=== PATIENT | male | born 1985 | race Two or more races ===

== ENCOUNTER 2021-03-03 10:57 | Emergency (ER) | payer MEDICAID ==
[~2021-03-03] VITALS: Ht 154.9 cm; Wt 93.0 kg
[2021-03-03 11:14] VITALS: BP 156/82
--- NOTE | 2021-03-03 11:16 | NUR ---
SEEN AND EXAMINED BY .
--- NOTE | 2021-03-03 11:18 | NUR ---
The patient bibs for c/o right hand pain x 1 week,"can't make a fist",denies any trauma. Rates pain 10/10. No s/s poor circulation noted. Will continue to monitor the patient.
--- NOTE | 2021-03-03 11:20 | NUR ---
DIRECTOR TRADE AT BEDSIDE FOR XRAY.
--- NOTE | 2021-03-03 11:48 | NUR ---
Patient discharged to home in stable condition. Written and verbal after care instructions given. Patient verbalizes understanding of instruction. The patient left ER in stable condition.
== END 2021-03-03 11:48 | disposition home or self-care (01) ==
LOC: ER 11:07
DX: M79.641 Pain in right hand (principal)
CPT/HCPCS: 73130-TC